=== PATIENT | male | born 1950 | race Caucasian/White ===

== ENCOUNTER 2018-03-27 11:08 | Outpatient (CLI) | payer OTHER ==
[~2018-03-27 11:08] MED LIST: ACETAMINOOPHEN-1 TAB PO; AMBIEN10 MG PO; CIPRO750 MG PO; Colace 100MG PO; NEURONTIN PO
== END 2018-03-27 15:51 | disposition home or self-care (01) ==
LOC: MRI 11:08
DX: M54.89 Other dorsalgia (principal)
CPT/HCPCS: 72146

== ENCOUNTER 2018-03-29 07:20 | Outpatient (CLI) | payer OTHER | END 2018-03-29 07:25 | disposition home or self-care (01) | LOC: SONOGRAMA 07:20 | DX: D69.6 Thrombocytopenia, unspecified (principal) ==

== ENCOUNTER 2018-04-18 12:44 | Outpatient (CLI) | payer OTHER | END 2018-04-18 12:53 | disposition home or self-care (01) | LOC: NUCLEAR 12:44 | DX: M81.0 Age-related osteoporosis without current pathological fracture (principal) ==

== ENCOUNTER 2018-09-10 10:02 | Outpatient (CLI) | payer OTHER | END 2018-09-10 10:11 | disposition home or self-care (01) | LOC: NUCLEAR 10:02 | DX: R55 Syncope and collapse (principal) ==

== ENCOUNTER 2018-09-13 14:50 | Outpatient (CLI) | payer OTHER | END 2018-09-13 16:45 | disposition home or self-care (01) | LOC: TOM 14:50 | DX: S27.899A Unspecified injury of other specified intrathoracic organs, initial encounter (principal) ==

== ENCOUNTER 2018-09-18 07:54 | Outpatient (CLI) | payer OTHER | END 2018-09-18 08:17 | disposition home or self-care (01) | LOC: NUCLEAR 07:54 | DX: R55 Syncope and collapse (principal) ==

== ENCOUNTER 2018-09-19 10:58 | Outpatient (CLI) | payer OTHER | END 2018-09-19 11:07 | disposition home or self-care (01) | LOC: RAD 10:58 | DX: S12.650A Other traumatic displaced spondylolisthesis of seventh cervical vertebra, initial encounter for closed fracture (principal) ==

== ENCOUNTER → 2019-10-06 09:36 | Outpatient (CLI) | payer OTHER | END | disposition home or self-care (01) | LOC: LAB 09:36 | DX: N20.0 Calculus of kidney (principal) ==

== ENCOUNTER 2019-10-07 07:25 | Outpatient (CLI) | payer OTHER | END 2019-10-07 10:45 | disposition home or self-care (01) | LOC: MRI 07:25 | DX: M54.5 Low back pain (principal); M53.85 Other specified dorsopathies, thoracolumbar region | CPT/HCPCS: 72141; 72146; 72158; A9575 ==

== ENCOUNTER → 2019-12-27 | Outpatient (CLI) | payer OTHER | END | disposition home or self-care (01) | LOC: RAD 10:12 | DX: M25.441 Effusion, right hand (principal) ==

== ENCOUNTER → 2020-04-01 11:10 | Outpatient (CLI) | payer OTHER | END | disposition home or self-care (01) | LOC: LAB 11:10 → RAD 11:10 | DX: N20.0 Calculus of kidney (principal); M54.5 Low back pain ==

== ENCOUNTER 2020-04-06 11:16 | Outpatient (CLI) | payer OTHER | END 2020-04-06 11:22 | disposition home or self-care (01) | LOC: MRI 11:16 | DX: M54.5 Low back pain (principal) | CPT/HCPCS: 72148 ==

== ENCOUNTER 2021-11-23 11:25 | Outpatient (CLI) | payer OTHER | END 2021-11-23 11:30 | disposition home or self-care (01) | LOC: RAD 11:25 → NUCLEAR 11-24 13:30 | PROVIDERS: ATTEND Internal Medicine Gastroenterology | DX: M54.59 Other low back pain (principal); D17.79 Benign lipomatous neoplasm of other sites; E11.9 Type 2 diabetes mellitus without complications; K44.9 Diaphragmatic hernia without obstruction or gangrene; K57.30 Diverticulosis of large intestine without perforation or abscess without bleeding; K29.70 Gastritis, unspecified, without bleeding; K31.89 Other diseases of stomach and duodenum; K20.80 Other esophagitis without bleeding; K22.89 Other specified disease of esophagus; D50.8 Other iron deficiency anemias; M47.897 Other spondylosis, lumbosacral region; B96.81 Helicobacter pylori [H. pylori] as the cause of diseases classified elsewhere; R31.29 Other microscopic hematuria ==

== ENCOUNTER 2022-06-04 14:36 | Emergency (ER) | payer OTHER ==
[~2022-06-04] VITALS: Ht 162.6 cm; Wt 67.6 kg
[2022-06-04] MEDS ORDERED: PRAVASTATIN SOD20 MG PO (14:49)
[2022-06-04] MEDS ORDERED: AMLODIPINE-OLM1 EAC2 PO (14:49)
[2022-06-04] MEDS ORDERED: COZAAR100 MG PO (14:50)
[2022-06-04] MEDS ORDERED: TAMS0.4C PO (14:50)
[2022-06-04] MEDS ORDERED: TENORMIN25 MG PO (14:50)
[2022-06-04] MEDS ORDERED: JANUMET XR 1001 EACH PO (14:50)
[2022-06-04] MEDS ORDERED: ACID REDUCER20 M1 PO (14:51)
[2022-06-04] MEDS ORDERED: DETROL2 MG PO (14:52)
== END 2022-06-04 19:03 | disposition home or self-care (01) ==
LOC: ER 14:36
DX: S89.92XA Unspecified injury of left lower leg, initial encounter (principal); W18.31XA Fall on same level due to stepping on an object, initial encounter; Y93.9 Activity, unspecified; Y92.9 Unspecified place or not applicable; E11.9 Type 2 diabetes mellitus without complications; Z79.84 Long term (current) use of oral hypoglycemic drugs; E03.9 Hypothyroidism, unspecified; I10 Essential (primary) hypertension; E78.00 Pure hypercholesterolemia, unspecified

== ENCOUNTER 2022-06-15 12:20 | Outpatient (CLI) | payer OTHER ==
[~2022-06-15 12:20] MED LIST changes: +ACID REDUCER20 M1 PO; +AMLODIPINE-OLM1 EAC2 PO; +COZAAR100 MG PO; +DETROL2 MG PO; +JANUMET XR 1001 EACH PO; +PRAVASTATIN SOD20 MG PO; +TAMS0.4C PO; +TENORMIN25 MG PO
== END 2022-06-15 12:23 | disposition home or self-care (01) ==
LOC: RAD 12:20
PROVIDERS: ATTEND Physical Medicine & Rehabilitation
DX: M79.662 Pain in left lower leg (principal)

== ENCOUNTER 2022-07-28 07:12 | Outpatient (CLI) | payer OTHER | END 2022-07-28 07:13 | disposition home or self-care (01) | LOC: NUCLEAR 07:12 | PROVIDERS: ATTEND Internal Medicine Cardiovascular Disease | DX: I20.9 Angina pectoris, unspecified (principal) | CPT/HCPCS: 78452; 93017; A9500; J0153 ==

== ENCOUNTER → 2024-07-28 | Emergency (ER) | payer OTHER ==
[~2024-07-28] VITALS: Ht 154.9 cm; Wt 58.1 kg
[~2024-07-28] MED LIST changes: +CEFTRIAXONE SODIUM 1,000 MG VIAL IM STA; +CEFTRIAXONE SODIUM 1,000 MG VIAL ONE; +JARDIANCE10 MG PO
== END | disposition home or self-care (01) ==
LOC: ER 08:09
DX: H00.016 Hordeolum externum left eye, unspecified eyelid (principal); E11.9 Type 2 diabetes mellitus without complications; Z79.84 Long term (current) use of oral hypoglycemic drugs
CPT/HCPCS: 96372; 99282; J0696